=== PATIENT | female | born 1975 | race Caucasian/White ===

== ENCOUNTER 2022-02-23 20:12 | Emergency (ER) | payer BC ==
[~2022-02-23 20:12] MED LIST: Iopamidol 370 76% 100 ML VIAL ONE
[2022-02-23] MEDS ORDERED: Orphenadrine Citrate 60 MG/2 ML VIAL IM SCH (21:30)
[2022-02-23 21:33] LABS: #Basophils 0.1 10x3/uL (0.0-0.2); #Eosinphils 0.3 10x3/uL (0.0-0.5); #Monocytes 0.8 10x3/uL (0.0-1.1); #Neutrophils 5.3 10x3/uL (1.5-8.4); %Basophils 0.8 % (0.0-2.0); %Lymphocytes 30.6 % (18.0-47.0); %Monocytes 8.1 % (0.0-10.0); %Neutrophils 57.3 % (40.0-75.0); Mean Corpuscular HGB CONC 30.1 g/dL (32.0-36.0); Mean Corpuscular Hemoglobin 20.9 pg (27.0-33.0); Mean Corpuscular Volume 69.4 fl (81.6-98.3); Mean Platelet Volume 9.6 fl (7.4-10.4); Platelet Count 537 10x3/uL (150-450); RBC Distribution Width 18.2 % (11.5-14.5); Red Blood Cell (RBC) Count 4.31 10x6/uL (3.90-5.03); White Blood Cell (WBC) Count 9.2 10x3/uL (3.5-10.5)
[2022-02-23 21:48] LABS: ALT (SGPT) 60 U/L (8-55); AST (SGOT) 43 U/L (5-34); Albumin 3.1 g/dL (3.5-5.0); Alkaline Phosphatase 228 U/L (40-110); Anion Gap 11 mmol/L (10-20); BUN (Urea Nitrogen) 21 mg/dL (7.0-18.7); Bilirubin, Total 0.3 mg/dL (0.2-1.2); Calc. Creatinine Clearance 0 mL/min (70-130); Carbon Dioxide 25 mmol/L (22-29); Chloride 104 mmol/L (98-107); Estimated GFR 119; Globulin 3.4 g/dL (2.4-3.5); Glucose 205 mg/dL (70-105); Potassium 3.9 mmol/L (3.5-5.1); Protein, Total 6.5 g/dL (6.0-8.3); Sodium 136 mmol/L (136-145)
== END 2022-02-24 00:39 | disposition home or self-care (01) ==
LOC: CSHERS 20:12
DX: R07.9 Chest pain, unspecified (principal); I10 Essential (primary) hypertension; E11.9 Type 2 diabetes mellitus without complications
CPT/HCPCS: 36415; 71275; 72170; 80053; 84484; 85025; 96372; J2360; Q9967

== ENCOUNTER 2024-01-19 16:01 | Emergency (ER) | payer BC ==
[2024-01-19 17:24] LABS: #Basophils 0.07 10x3/uL (0.0-0.2); #Eosinphils 0.03 10x3/uL (0.0-0.5); #Monocytes 0.65 10x3/uL (0.0-1.1); #Neutrophils 4.99 10x3/uL (1.5-8.4); %Basophils 0.8 % (0.0-2.0); %Eosinophils 0.4 % (0.0-6.0); %Lymphocytes 31.1 % (18.0-47.0); %Monocytes 7.8 % (0.0-10.0); %Neutrophils 59.5 % (40.0-75.0); Hematocrit 40.4 % (34.9-44.5); Hemoglobin 12.3 g/dL (12.0-15.5); Mean Corpuscular HGB CONC 30.4 g/dL (32.0-36.0); Mean Corpuscular Hemoglobin 23.2 pg (27.0-33.0); Mean Corpuscular Volume 76.1 fL (81.6-98.3); Mean Platelet Volume 10.9 fL (7.4-10.4); Platelet Count 386 10x3/uL (150-450); RBC Distribution Width 15.5 % (11.5-14.5); Red Blood Cell (RBC) Count 5.31 10x6/uL (3.90-5.03); White Blood Cell (WBC) Count 8.4 10x3/uL (3.5-10.5)
[2024-01-19 17:33] LABS: ALT (SGPT) 27 U/L (8-55); AST (SGOT) 22 U/L (5-34); Albumin 3.2 g/dL (3.5-5.0); Alkaline Phosphatase 157 U/L (40-110); Anion Gap 16 mmol/L (10-20); BUN (Urea Nitrogen) 12 mg/dL (7.0-18.7); Bilirubin, Total 0.7 mg/dL (0.2-1.2); Calc. Creatinine Clearance 0 mL/min (70-130); Calcium 9.1 mg/dL (7.8-10.44); Carbon Dioxide 26 mmol/L (22-29); Chloride 96 mmol/L (98-107); Estimated GFR 109; Globulin 3.9 g/dL (2.4-3.5); Glucose 232 mg/dL (70-105); Potassium 2.8 mmol/L (3.5-5.1); Protein, Total 7.1 g/dL (6.0-8.3); Sodium 135 mmol/L (136-145)
[2024-01-19] MEDS ORDERED: D5 1/2 NS w/20 mEq KCL 1,000 ML ONE (17:53)
[2024-01-19 18:10] LABS: Influenza A by NAA Not Detected (NotDetected); Influenza B by NAA Not Detected (NotDetected); SARS-CoV-2 NAA Rapid Test Not Detected (NotDetected)
[2024-01-19 19:36] LABS: BHCG - Serum Negative (NEGATIVE); Pregs Control Background? CLEAR/WHITE (CLR/WHITE); Pregs Control Bar Appear? YES (CONTROL BAR)
[2024-01-19] MEDS ORDERED: Acetaminophen 325 MG TAB ONE (19:57)
[2024-01-19 20:54] LABS: Bilirubin 1+ (Negative); Blood, Urine 10 (Negative); Clarity Clear (Clear); Glucose, Urine (Dipstick) Normal (Negative); Ketone, Urine 50 mg/dL (Negative); Leukocyte 100 (Negative); Nitrite Negative (Negative); Protein, Urine (Dipstick) 30 mg/dl (Neg-Trace)
[2024-01-19 21:11] LABS: Bacteria/HPF 3+ HPF (None Seen); CAUTI Indications for Culture Fever or rigors; Mucous/LPF 3+ LPF (<2+); RBC/HPF 0-3 HPF (0-3)
[2024-01-19 21:12] LABS: Urine Culture Reflex No No
[2024-01-19] MEDS ORDERED: Magnesium 2 GM/50 ML BAG (IN WATER) ONE (21:25)
[2024-01-20] MEDS ORDERED: Ondansetron PF 4 MG/2 ML Vial ONE (00:01)
[2024-01-20] MEDS ORDERED: Haloperidol Lactate 5 MG/ML VIAL ONE (00:54)
[2024-01-20] MEDS ORDERED: Prochlorperazine 10 MG/2 ML VIAL ONE (01:15)
[2024-01-20 06:10] LABS: ALT (SGPT) 18 U/L (8-55); AST (SGOT) 14 U/L (5-34); Albumin 2.5 g/dL (3.5-5.0); Alkaline Phosphatase 122 U/L (40-110); Anion Gap 9 mmol/L (10-20); BUN (Urea Nitrogen) 7 mg/dL (7.0-18.7); Bilirubin, Total 0.7 mg/dL (0.2-1.2); Calc. Creatinine Clearance 0 mL/min (70-130); Calcium 7.9 mg/dL (7.8-10.44); Carbon Dioxide 30 mmol/L (22-29); Chloride 101 mmol/L (98-107); Estimated GFR 115; Globulin 2.8 g/dL (2.4-3.5); Glucose 198 mg/dL (70-105); Protein, Total 5.3 g/dL (6.0-8.3); Sodium 137 mmol/L (136-145)
[2024-01-20] MEDS ORDERED: cefTRIAXone (ROCEPHIN) 1 GM VIAL ONE (06:27)
[2024-01-20] MEDS ORDERED: diphenhydrAMINE 50 MG/ML VIAL ONE (10:38)
[2024-01-20] MEDS ORDERED: Metoclopramide HCl 10 MG (2 mL) VIAL ONE (10:38)
[2024-01-20] MEDS ORDERED: HYDROmorphone 0.5 MG/0.5 ML SYRINGE ONE (12:19)
== END 2024-01-20 13:06 | disposition home or self-care (01) ==
LOC: CSHERS 16:01
DX: E86.0 Dehydration (principal); E87.6 Hypokalemia; E11.9 Type 2 diabetes mellitus without complications; I10 Essential (primary) hypertension
CPT/HCPCS: 36415; 51702; 71045; 74177; 80053; 81001; 83605; 84703; 85025; 87040; 93005; 93010; 96361; 96365; 96366; 96367; 96375; J0696; J0780; J1170; J1200; J1630; J2405; J2765; J3475; J3480

== ENCOUNTER 2024-04-03 11:31 | Emergency (ER) | payer BC ==
[2024-04-03] MEDS ORDERED: Metoclopramide HCl 10 MG (2 mL) VIAL ONE (12:06)
[2024-04-03 13:24] LABS: #Basophils 0.06 10x3/uL (0.0-0.2); #Eosinophils 0.03 10x3/uL (0.0-0.5); #Monocytes 0.46 10x3/uL (0.0-1.1); #Neutrophils 6.02 10x3/uL (1.5-8.4); %Basophils 0.7 % (0.0-2.0); %Eosinophils 0.3 % (0.0-6.0); %Lymphocytes 26.1 % (18.0-47.0); %Monocytes 5.2 % (0.0-10.0); %Neutrophils 67.5 % (40.0-75.0); Hematocrit 47.7 % (34.9-44.5); Mean Corpuscular HGB CONC 31.4 g/dL (32.0-36.0); Mean Corpuscular Hemoglobin 23.4 pg (27.0-33.0); Mean Corpuscular Volume 74.3 fL (81.6-98.3); Mean Platelet Volume 10.9 fL (7.4-10.4); Platelet Count 374 10x3/uL (150-450); RBC Distribution Width 19.1 % (11.5-14.5); Red Blood Cell (RBC) Count 6.42 10x6/uL (3.90-5.03); White Blood Cell (WBC) Count 8.9 10x3/uL (3.5-10.5)
[2024-04-03 13:25] LABS: Phosphorus 3.2 mg/dL (2.3-4.7)
[2024-04-03] MEDS ORDERED: diphenhydrAMINE 25 MG CAP ONE (13:31)
[2024-04-03 13:32] LABS: ALT (SGPT) 32 U/L (8-55); AST (SGOT) 42 U/L (5-34); Albumin 3.8 g/dL (3.5-5.0); Alkaline Phosphatase 233 U/L (40-110); Anion Gap 19 mmol/L (10-20); BUN (Urea Nitrogen) 10 mg/dL (7.0-18.7); Bilirubin, Total 1.1 mg/dL (0.2-1.2); Calc. Creatinine Clearance 0 mL/min (70-130); Calcium 9.7 mg/dL (7.8-10.44); Carbon Dioxide 24 mmol/L (22-29); Chloride 100 mmol/L (98-107); Estimated GFR 104; Globulin 4.7 g/dL (2.4-3.5); Glucose 132 mg/dL (70-105); Lipase 5 U/L (8-78); Magnesium 2.1 mg/dL (1.6-2.6); Potassium 3.5 mmol/L (3.5-5.1); Protein, Total 8.5 g/dL (6.0-8.3); Sodium 139 mmol/L (136-145)
[2024-04-03 13:44] LABS: Anisocytosis SLIGHT = 6-15 cells (100X) (0-5/hpf); Microcytosis SLIGHT = 6-15 cells (100X) (0-5/hpf)
[2024-04-03 13:45] LABS: Platelet Adequacy Comment Appears Adequate
== END 2024-04-03 14:26 | disposition home or self-care (01) ==
LOC: CSHERS 11:31
DX: I10 Essential (primary) hypertension (principal); E86.0 Dehydration; E11.9 Type 2 diabetes mellitus without complications
CPT/HCPCS: 80053; 83690; 83735; 84100; 85025; 96361; 96374; J2765

== ENCOUNTER 2024-06-03 12:20 | Emergency (ER) | payer BC ==
[2024-06-03 14:07] LABS: #Basophils 0.07 10x3/uL (0.0-0.2); #Eosinophils 0.12 10x3/uL (0.0-0.5); #Monocytes 0.92 10x3/uL (0.0-1.1); #Neutrophils 6.24 10x3/uL (1.5-8.4); %Basophils 0.7 % (0.0-2.0); %Eosinophils 1.2 % (0.0-6.0); %Monocytes 9.2 % (0.0-10.0); %Neutrophils 62.6 % (40.0-75.0); Hematocrit 45.6 % (34.9-44.5); Hemoglobin 14.1 g/dL (12.0-15.5); Mean Corpuscular HGB CONC 30.9 g/dL (32.0-36.0); Mean Corpuscular Hemoglobin 24.3 pg (27.0-33.0); Mean Corpuscular Volume 78.5 fL (81.6-98.3); Platelet Count 411 10x3/uL (150-450); RBC Distribution Width 20.3 % (11.5-14.5); Red Blood Cell (RBC) Count 5.81 10x6/uL (3.90-5.03)
[2024-06-03 14:25] LABS: ALT (SGPT) 15 U/L (8-55); AST (SGOT) 24 U/L (5-34); Albumin 3.1 g/dL (3.5-5.0); Alkaline Phosphatase 156 U/L (40-110); Anion Gap 20 mmol/L (10-20); BUN (Urea Nitrogen) 6 mg/dL (7.0-18.7); Bilirubin, Total 0.8 mg/dL (0.2-1.2); Calc. Creatinine Clearance 0 mL/min (70-130); Carbon Dioxide 17 mmol/L (22-29); Chloride 104 mmol/L (98-107); Estimated GFR 109; Globulin 4.3 g/dL (2.4-3.5); Glucose 98 mg/dL (70-105); Potassium 4.1 mmol/L (3.5-5.1); Protein, Total 7.4 g/dL (6.0-8.3); Sodium 137 mmol/L (136-145)
[2024-06-03] MEDS ORDERED: Metoprolol Tartrate 5 MG (5 mL) VIAL ONE (16:13)
[2024-06-03] MEDS ORDERED: Ondansetron PF 4 MG/2 ML Vial ONE (16:13)
[2024-06-03] MEDS ORDERED: Acetaminophen 500 MG TAB ONE (17:23)
== END 2024-06-03 18:19 | disposition home or self-care (01) ==
LOC: CSHERS 12:20
DX: E11.65 Type 2 diabetes mellitus with hyperglycemia (principal); I10 Essential (primary) hypertension; Z90.89 Acquired absence of other organs
CPT/HCPCS: 36416; 80053; 85025; 93005; 96374; 96375; J2405